=== PATIENT | male | born 1950 | race Caucasian/White ===

== ENCOUNTER 2018-07-31 07:04 | Inpatient (IN) | payer MEDICARE, OTHER ==
[2018-07-28 12:37] LABS: Basophils # (auto) 0.1 uL; Basophils % (auto) 0.9 % (0.0-2.0); Eosinophils # (auto) 0.2 uL; Eosinophils % (auto) 2.8 % (0.0-7.0); Hematocrit 43.8 % (41.0-53.0); Hemoglobin 14.9 g/dL (13.5-17.5); Lymphocytes # (auto) 2.1 uL; Lymphocytes % (auto) 27.8 % (10.0-50.0); Mean Corpuscular Hemoglobin 30.3 pg (28.0-32.0); Mean Corpuscular Hgb Conc. 33.9 g/dL (32.0-36.0); Mean Corpuscular Volume 89.4 fL (80.0-100.0); Monocytes # (auto) 0.8 uL; Monocytes % (auto) 11.2 % (0.0-12.0); Neutrophils # (auto) 4.3 uL; Neutrophils % (auto) 57.3 % (37.0-80.0); Nucleated Red Blood Cells % 0.1 %; Platelet Count (auto) 260 10^3/uL (140-450); Red Cell Distribution Width 13.2 % (11.8-14.3); White Blood Cell 7.6 10^3/uL (4.4-10.8)
[2018-07-28 12:50] LABS: Urine Blood Negative /uL (Negative); Urine Specific Gravity 1.007 (1.001-1.035)
[2018-07-28 12:57] LABS: INR 1.22 (0.9-1.15); Partial Thromboplastin Time 27.2 sec (23.78-33.04); Prothrombin Time 12.9 sec (9.27-12.13)
[2018-07-28 13:06] LABS: BUN/Creatinine Ratio 12.4; Calcium 8.6 mg/dL (8.5-10.1); Potassium 4.5 mmol/L (3.5-5.1)
[2018-07-28 13:09] LABS: Bilirubin, Total 0.5 mg/dL (0.2-1.0); Total Protein 7.5 g/dL (6.4-8.2)
[~2018-07-31] VITALS: Ht 175.3 cm; Wt 109.5 kg
[2018-07-31] VITALS (14 sets, daily range): BP systolic 123–160; BP diastolic 65–87
[~2018-07-31 07:04] MED LIST: ATEN-60 PO
[2018-07-31] MEDS ORDERED: TETRACAINE 1% INJ 2 ML VIAL IJ ONE (07:11)
[2018-07-31] MEDS ORDERED: BUPIVACAINE W/ EPINEPH 0.25% INJ 50ML MDV ONE (07:18)
[2018-07-31] MEDS ORDERED: KETOROLAC TROMETH 30 MG/ML 1ML VIAL ONE (07:19)
[2018-07-31] MEDS ORDERED: VANCOMYCIN HCL 1000 MG VL ONE (07:19)
[2018-07-31] MEDS ORDERED: MORPHINE SULF(PF) 0.5MG/ML 10ML VIAL ONE ×2 (07:22→08:15)
[2018-07-31] MEDS ORDERED: TRANEXAMIC ACID 20 ML ONE (07:23)
[2018-07-31] MEDS ORDERED: MIDAZOLAM HCL 1MG/1ML-2 ML VIAL ONE ×2 (08:15→12:51)
[2018-07-31] MEDS ORDERED: fentaNYL CITRATE 100 MCG/2 ML VL ONE (08:15)
[2018-07-31] MEDS ORDERED: PROPOFOL 10 MG/ML 20 ML IV ONE (08:16)
[2018-07-31] MEDS ORDERED: ONDANSETRON HCL 4 MG/2 ML VIAL ONE (08:16)
[2018-07-31] MEDS ORDERED: SODIUM CHLORIDE LOCK 10 ML ONE (08:16)
[2018-07-31] MEDS ORDERED: ceFAZolin 1GM/50ML 100 ML IV ONE (08:30)
[2018-07-31] MEDS ORDERED: diphenhdrAMINE HCL 50 MG/1 ML VL IV PRN (09:30)
[2018-07-31] MEDS ORDERED: METOCLOPRAMIDE HCL 5MG/ml INJ 2ml VIAL IV ONE (09:30)
[2018-07-31] MEDS ORDERED: HYDROmorphone HCL 2 MG/ML VL IV PRN ×2 (09:30→11:30)
[2018-07-31] MEDS ORDERED: NALOXONE HCL 0.4 MG/ML VIAL IV PRN (09:30)
[2018-07-31] MEDS: LACTATED RINGER'S 1,000 ML IV SCH ×2 (11:20→21:20)
[2018-07-31] MEDS ORDERED: ONDANSETRON HCL 4 MG/2 ML VIAL IV PRN (11:30)
[2018-07-31] MEDS ORDERED: traMADol HCL 50 MG TAB PO PRN (11:30)
[2018-07-31] MEDS ORDERED: MORPHINE SULF INJ 2 MG/ML SYRINGE 1ML IV PRN (11:30)
[2018-07-31] MEDS ORDERED: NITROGLYCERIN 0.4 MG SL TAB SL PRN (11:30)
[2018-07-31] MEDS ORDERED: ACETAMINOPHEN 325 MG TAB PO PRN (11:30)
[2018-07-31] MEDS ORDERED: OXYCODONE W/ ACETAMINOPHEN 5/325MG TABLET PO PRN (11:30)
[2018-07-31] MEDS: KETOROLAC TROMETH 30 MG/ML 1ML VIAL IV SCH ×2 (12:00→17:30)
[2018-07-31] MEDS ORDERED: ROPIVACAINE 0.5% (5MG/ML) 20ML AMPULE IJ ONE (12:48)
[2018-07-31] MEDS ORDERED: LIDOCAINE W/ EPINEPHRINE 2% INJ 20ML VIAL ONE (12:48)
[2018-07-31] MEDS ORDERED: MIDAZOLAM HCL 1MG/1ML-2 ML VIAL IM ONE (12:52)
--- NOTE | 2018-07-31 13:45 | NUR ---
MS admit from [facility] admitted to tele/MS after SBAR received. Patient oriented to Olga Lancaster, primary RN, unit, room, bed, and unit policies regarding patient care and visiting hours. Patient weighed by bedscale and encouraged to call if they need something. All questions and concerns addressed, patient verbalized understanding. Pt placed at 2 lit of O2 via n/c, Lt knee dressing clean and dry, pt denies any pain or discomfort at this time, call light with in reach, pt's at bed side, will continue to monitor pt.
--- NOTE | 2018-07-31 15:30 | NUR ---
DR. HUERTA AT BED SIDE TO SEE PT, DISCUSSED PLAN OF CARE WITH PT AND PT'S , ORDERS TO GIVEN ATENOLOL PER PT'S HOME MEDICATION SCHEDULE.
[2018-07-31] MEDS ORDERED: ATEN50TA PO (16:54)
[2018-07-31] MEDS ORDERED: ATENOLOL 50 MG TAB PO ONE (18:00)
--- NOTE | 2018-07-31 19:30 | NUR ---
Opening Shift Note Assumed care of patient, awake and alert. Significant other at bedside. No S/S of distress/SOB or pain. Dressing to left knee dry and intact. Discussed on POC and to call for assist PRN, patient verbalized understanding, call light within reach, will continue to monitor for changes Q1hr and PRN.
--- NOTE | 2018-07-31 20:05 | NUR ---
Filiberto of [facility] came in and placed patient on CPM, started at 45 deg, will continue to monitor
[2018-07-31] MEDS: DOCUSATE SOD 100 MG CAP PO SCH (21:37)
[2018-07-31] MEDS ORDERED: ATENOLOL 25 MG PO SCH (22:00)
[2018-07-31] MEDS ORDERED: ATENOLOL 25 MG TAB PO SCH (22:00)
--- NOTE | 2018-07-31 23:00 | NUR ---
Patient doesn't have urine output yet, per patient, he doesn't feel the urge to pee. Bladder scan done and there's a 423 ml of urine. Instructed patient that if he will not pee, there's a possibility of de la rosa cath insertion.
--- NOTE | 2018-07-31 23:15 | NUR ---
Patient was able to pee a 100 ml of urine, will continue to monitor
[2018-08-01] VITALS (19 sets, daily range): BP systolic 131–163; BP diastolic 69–88
[2018-08-01] MEDS: KETOROLAC TROMETH 30 MG/ML 1ML VIAL IV SCH ×4 (00:32→18:25)
--- NOTE | 2018-08-01 02:00 | NUR ---
Stopped CPM at this time per Filiberto advise, will continue care
--- NOTE | 2018-08-01 02:37 | NUR ---
Patient has a 200 ml of urine output, will continue to monitor
[2018-08-01] MEDS: LACTATED RINGER'S 1,000 ML IV SCH ×2 (06:25→17:20)
[2018-08-01 06:56] LABS: Potassium 4.8 mmol/L (3.5-5.1)
[2018-08-01 07:06] LABS: Hematocrit 41.8 % (41.0-53.0); Hemoglobin 13.2 g/dL (13.5-17.5)
[2018-08-01 07:14] LABS: Albumin 3.3 g/dL (3.4-5.0); BUN/Creatinine Ratio 18.4; Bilirubin, Total 0.6 mg/dL (0.2-1.0); Calcium 8.6 mg/dL (8.5-10.1); Total Protein 6.7 g/dL (6.4-8.2)
--- NOTE | 2018-08-01 08:30 | NUR ---
OPENING NOTE Received report on patient. Patient is in bed A&Ox4. No signs of distress at this time. Patient denies any pain. Dressing to right knee is clean dry and intact. Patient informed of POC and verbalizes understanding. Bed is in low locked position. Call brumfield left within reach. Pt instructed to call nurse if any needs arise.
--- NOTE | 2018-08-01 10:00 | NUR ---
Pt had 100ml of urine output. Urine is clear and yellow in color. No abnormal odor noted.
[2018-08-01] MEDS: DOCUSATE SOD 100 MG CAP PO SCH ×2 (10:08→21:54)
[2018-08-01] MEDS: ENOXAPARIN SOD 40 MG/0.4 ML SYRINGE SC SCH (10:09)
--- NOTE | 2018-08-01 10:10 | NUR ---
LINEN CHANGE PT GIVEN COMPLETE LINEN CHANGE
--- NOTE | 2018-08-01 10:20 | NUR ---
Pt began CPM at this time at 45 degrees. Patient instructed to notify nurse of increased pain. Patient instructed on how to stop therapy if necessary. Patient verbalizes understanding.
--- NOTE | 2018-08-01 12:00 | NUR ---
Pt stopped CPM at this time for lunch.
[2018-08-01] MEDS ORDERED: ATENOLOL 25 MG TAB PO SCH (14:15)
--- NOTE | 2018-08-01 14:23 | NUR ---
assessment Patient is a 67 year old male who is alert and oriented. Patients cognitive abilities are intact. Prior to admission patient lived home with family and functioned independently. Patient informed me he is able to care for his own ADLs. Per patient he will return home to his prior living arrangements post discharge and family will transport him home. Patient informed me he has a fww, cane, and wheelchair for home use. Patients PCP is [facility]. Patient has been admitted for knee replacement. Patient will need home health for PT and a CPM. I informed patient he has a right to speak to a case management social worker regarding all care. I informed patient he has a right to participate in any and all discharge planning. Patient is aware of visiting hours on the hospital floor. I informed patient he has a right to privacy. Patient has a POA and advanced directive. Patient verbalized understanding and agreed to discharge plan. Addendum: 08/02/18 at 1458 by Linnette BUCKNER Amended: Links added.
[2018-08-01] MEDS: ATENOLOL 50 MG TAB PO SCH (21:55)
[2018-08-02] MEDS: KETOROLAC TROMETH 30 MG/ML 1ML VIAL IV SCH ×2 (00:20→05:24)
[2018-08-02] MEDS ORDERED: diphenhdrAMINE HCL 12.5 MG/5 ML UD PO ONE (00:30)
[2018-08-02 04:30] VITALS: BP 131/61
[2018-08-02 05:47] LABS: Hematocrit 35.9 % (41.0-53.0); Hemoglobin 12.1 g/dL (13.5-17.5)
[2018-08-02 06:09] LABS: BUN/Creatinine Ratio 17.9; Calcium 8.6 mg/dL (8.5-10.1); Potassium 4.2 mmol/L (3.5-5.1)
--- NOTE | 2018-08-02 07:55 | NUR ---
OPENING SHIFT NOTE Received report on patient. Patient is sitting up in chair eating breakfast. A&O x4. Denies any pain at this time. POC discussed with patient. Patient verbalizes understanding. Call brumfield is within reach and patient instructed to call for assistance if needed.
[2018-08-02 08:10] VITALS: BP 155/87
[2018-08-02 08:45] VITALS: BP 155/87
[2018-08-02 09:30] VITALS: BP 155/87
[2018-08-02] MEDS: DOCUSATE SOD 100 MG CAP PO SCH (09:53)
[2018-08-02] MEDS: ENOXAPARIN SOD 40 MG/0.4 ML SYRINGE SC SCH (09:55)
[2018-08-02] MEDS: ATENOLOL 50 MG TAB PO SCH (09:56)
--- NOTE | 2018-08-02 10:19 | NUR ---
ORDER AND CLINICALS FAXED TO [facility]QUEST[facility]. STATES SHE HAS A WALKER SHE WILL BRING IN ENCASE WALKER IS NOT DELIVERED TO HOSPITAL BEFORE PATIENT DISCHARGES. [facility] PHONE NUMBER [phone]. ORDER ALSO SENT TO [facility] FOR DELIVERY OF CPM TO PATIENT'S HOME. PHONE NUMBER [phone]. PATIENT'S STATES [facility] HAS CONTACTED HER CONCERNING HOME HEALTH. THEY WILL START CARE 24 TO 48 HOURS AFTER DISCHARGE.[phone]. Addendum: 08/02/18 at 1025 by Kyaw Wilcox RN CM DR Gigi ARZATE HAS BEEN ADVISED OF ALL ABOVE.
--- NOTE | 2018-08-02 10:20 | NUR ---
SPOKE WITH PATIENT DR ALFREDO DISCUSSED KIDNEY FUNCTION WITH PATIENT AND INSTRUCTED TO FOLLOW UP WITH HIM IN OFFICE IN 2 WEEKS. PATIENT VERBALIZED UNDERSTANDING.
[2018-08-02 13:02] VITALS: BP 155/80
--- NOTE | 2018-08-02 14:05 | NUR ---
DISCHARGED. PATIENT DISCHARGED HOME VIA AMBULATORY WITH WALKER TO [facility] AFTER ALL DISCHARGE INSTRUCTIONS GIVEN AND ALL QUESTIONS AND CONCERNS ADDRESSED. PATIENT LEFT WITH CPM DEVICE THAT HAD BEEN DELIVERED BY JOSE ELIAS IN [facility] AND PATIENT VERBALIZED INSTRUCTIONS AND STATED HE WOULD CALL WITH ANY QUESTIONS. REVIEWED SUBCUTANEOUS INJECTION TEACHING WITH PATIENT FOR SHRAVAN. PATIENT VERBALIZED UNDERSTANDING OF TECHNIQUE. IV WAS REMOVED USING CLEAN STERILE TECHNIQUE, CATHETER WAS INTACT UPON REMOVAL. PRESSURE DRESSING APPLIED. [facility] ARRIVED WITH WALKER AND SET PATIENT UP WITH NEW WALKER TO TAKE HOME. PATIENT SHOWED NO S/S OF DISTRESS OR SOB NOTED UPON DISCHARGE.
--- NOTE | 2018-08-02 15:03 | NUR ---
re-assessment Per Farheen Dayday [facility] has accepted pt and service will start tomorrow 08/03/18. Per Ivan toth CPM to be delivered to hospital. Patient to take CPM at bedside. Patient agrees to discharge plan home. Addendum: 08/02/18 at 1504 by Linnette Atkinson SS Amended: Links added.
== END 2018-08-02 14:06 | disposition home health service (06) | DRG 470 ==
LOC: SUR 07:04 → WEST WING 13:43
PROVIDERS: ADMIT Orthopaedic Surgery Adult Reconstructive Orthopaedic Surgery; ATTEND Orthopaedic Surgery Adult Reconstructive Orthopaedic Surgery
PROC: 0SRD0J9 Replacement of Left Knee Joint with Synthetic Substitute, Cemented, Open Approach (ICD-10-PCS; 2018-07-31)
PROC: 3E0T3BZ Introduction of Anesthetic Agent into Peripheral Nerves and Plexi, Percutaneous Approach (ICD-10-PCS; principal; 2018-08-01)
DX: M17.12 Unilateral primary osteoarthritis, left knee (principal); N17.9 Acute kidney failure, unspecified; I10 Essential (primary) hypertension; E66.9 Obesity, unspecified; I12.9 Hypertensive chronic kidney disease with stage 1 through stage 4 chronic kidney disease, or unspecified chronic kidney disease; N18.2 Chronic kidney disease, stage 2 (mild); Z68.32 Body mass index [BMI] 32.0-32.9, adult
CPT/HCPCS: 36415; 73562; 80048; 80053; 81003; 85014; 85018; 85025; 85610; 85730; 86850; 86900; 86901; C1713; G0378; J0690; J1885; J2250; J2405; J2704